=== PATIENT | female | born 1950 | race Caucasian/White ===

== ENCOUNTER 2021-09-04 12:41 | Outpatient (REF) | payer MEDICARE, SELFPAY ==
--- NOTE | ~2021-09-04 | XR_ITS ---
EXAMINATION: XR FOOT, LEFT XR ANKLE, LEFT CLINICAL INFORMATION: Left foot and ankle swelling and pain. COMPARISON: None TECHNIQUE: 3 views left foot and 2 views left ankle. FINDINGS: Three views of the left foot do not demonstrate any evidence of acute fracture or dislocation. There is soft tissue swelling seen about the dorsal medial and lateral aspects of the tarsal bones. The joint spaces appear maintained. No erosive change is evident. There is mild soft tissue prominence with small calcification present about the medial aspect of the first metatarsal head. There are small calcaneal spurs at sites of insertion of Achilles and plantar tendons. No gas within the soft tissues is identified. No radiopaque foreign body. Views of the left ankle demonstrate some smooth periosteal reaction about the distal lateral fibula which may be related to a healed or healing nondisplaced fracture. Clinical correlation is suggested. No significant soft tissue swelling is seen overlying the region of the lateral malleolus. Ankle mortise appears intact. No destructive bony lesion appreciated. XR/XR foot LT min 3V IMPRESSION: Soft tissue swelling about the left foot and ankle as described. No definite acute fracture or dislocation is evident. There does appear to be some smooth periosteal reaction about the distal lateral fibula which may be related to an old fracture or healing nondisplaced fracture. No definite fracture line is appreciated.
--- NOTE | ~2021-09-04 | XR_ITS ---
EXAMINATION: XR FOOT, LEFT XR ANKLE, LEFT CLINICAL INFORMATION: Left foot and ankle swelling and pain. COMPARISON: None TECHNIQUE: 3 views left foot and 2 views left ankle. FINDINGS: Three views of the left foot do not demonstrate any evidence of acute fracture or dislocation. There is soft tissue swelling seen about the dorsal medial and lateral aspects of the tarsal bones. The joint spaces appear maintained. No erosive change is evident. There is mild soft tissue prominence with small calcification present about the medial aspect of the first metatarsal head. There are small calcaneal spurs at sites of insertion of Achilles and plantar tendons. No gas within the soft tissues is identified. No radiopaque foreign body. Views of the left ankle demonstrate some smooth periosteal reaction about the distal lateral fibula which may be related to a healed or healing nondisplaced fracture. Clinical correlation is suggested. No significant soft tissue swelling is seen overlying the region of the lateral malleolus. Ankle mortise appears intact. No destructive bony lesion appreciated. XR/XR ankle LT 2V IMPRESSION: Soft tissue swelling about the left foot and ankle as described. No definite acute fracture or dislocation is evident. There does appear to be some smooth periosteal reaction about the distal lateral fibula which may be related to an old fracture or healing nondisplaced fracture. No definite fracture line is appreciated.
== END 2021-09-04 12:42 | disposition home or self-care (01) ==
LOC: HO.XRAY 12:41
PROVIDERS: PCP Internal Medicine; Visit Provider Internal Medicine
DX: M25.572 Pain in left ankle and joints of left foot (principal); R60.0 Localized edema
CPT/HCPCS: 73600; 73630

== ENCOUNTER 2023-12-21 11:49 | Outpatient (REF) | payer MEDICARE, SELFPAY ==
[2023-12-21 14:19] LABS: Alanine Aminotransferase 17 U/L (0-31); Albumin Level 4.3 g/dL (3.5-5.0); Alkaline Phosphatase 46 U/L (39-117); Anion Gap 13 (12-20); Aspartate Amino Transferase 18 U/L (5-31); Bilirubin Total 1.1 mg/dL (0.0-1.0); Blood Urea Nitrogen 13 mg/dL (9-16); Calcium 9.7 mg/dL (8.4-10.2); Carbon Dioxide 30 mmol/L (22-29); Chloride 104 mmol/L (96-108); Estimated Glomerular Filt Rate > 60; Glucose Random 103 mg/dL (60-115); Potassium 4.8 mmol/L (3.3-5.1); Sodium 142 mmol/L (135-145)
[2023-12-21 14:38] LABS: Thyroid Stimulating Hormone 2.63 uIU/mL (0.32-4.0)
== END 2023-12-21 11:50 | disposition home or self-care (01) ==
LOC: HO.LAB 11:49
PROVIDERS: PCP Internal Medicine; Visit Provider Internal Medicine
DX: Z00.00 Encounter for general adult medical examination without abnormal findings (principal); E03.8 Other specified hypothyroidism; E78.00 Pure hypercholesterolemia, unspecified; F32.5 Major depressive disorder, single episode, in full remission; I10 Essential (primary) hypertension
CPT/HCPCS: 36415; 80053; 84443

== ENCOUNTER 2024-01-05 11:09 | Outpatient (AMB) | payer MEDICARE, SELFPAY ==
--- NOTE | 2024-01-05 11:14 | MHC.OFFVIS ---
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 She does not have any known cardiac issues. No known coronary artery disease, myocardial infarction, cardiomyopathy or in fact any cardiac issues. She also denies any major comorbidities like diabetes or hypertension. She is on medications for cholesterol. She states that about 2 months ago, she had approximately a 6 week period when she felt palpitations. She believes this was essentially present throughout the day and night for those weeks. The same time, whenever she was exerting herself like going up stairs and carrying some weight, she was feeling short of breath. After that, it seems all the symptoms resolved completely and she is back to her normal self. She no longer has any cardiac symptoms. Never had any exertional angina. Currently, feels back to normal self. Otherwise, remote history of smoking about 20 years ago. She drinks about 3 glasses of wine a day. [facility] Surgical History (Updated 01/05/24 @ 11:20 by Poly Barraza CMA) H/O: hysterectomy Family History (Updated 01/05/24 @ 11:22 by Poly Barraza CMA) Father Heart attack Pacemaker Social History (Updated 01/05/24 @ 11:22 by Poly Barraza CMA) Alcohol intake: current Comment: 3 glasses of wine daily Patient Tobacco Use Status: Former Tobacco user Review of Systems Const Denies chills, Denies daytime sleepiness, Denies fatigue, Denies fever(s), Denies poor appetite, Denies snoring, Denies stops breathing during sleep, Denies weakness, Denies weight gain and Denies weight loss Eyes Denies loss of vision ENT Denies dizziness and Denies hearing loss Card Denies chest pain, Denies irregular heart rhythm, Denies claudication, Denies leg edema, Denies lightheadedness, Denies palpitations, Denies dyspnea on exertion and Denies orthopnea Resp Denies cough, Denies excessive phlegm production, Denies dyspnea on exertion, Denies snoring and Denies wheezing GI Denies abdominal pain, Denies hematochezia, Denies change in bowel habits, Denies nausea and Denies vomiting Denies urinary frequency and Denies dysuria Musc Denies arthralgias, Denies muscle weakness, Denies numbness and Denies other Skin/Breast Denies nail changes and Denies rash Neuro Denies Abnormal speech present, Denies dizziness, Denies loss of vision, Denies memory loss, Denies numbness and Denies weakness Psych Denies depression and Denies memory loss Endo Denies fatigue and Denies palpitations Eddie/Lymph Denies easy bruising Aller/Immun Denies wheezing Physical Exam Vital Signs: Last Vital Signs Pulse 78 01/05/24 11:16 BP 126/68 01/05/24 11:16 BMI result Body Mass Index 28.8 Const General: comfortable and no acute distress Orientation/consciousness: patient oriented x3 HEENT Other: Unremarkable Head: Yes normal to inspection Neck Neck: Yes normal visual inspection Chest Chest palpation & inspection: normal inspection of the chest Resp Auscultation: clear to auscultation bilaterally Cardio Palpation: normal PMI Heart sounds: S1 normal heart sound present, S2 normal heart sound present, no gallops, no murmurs and no rubs GI Palpation (GI): Soft to palpation Back/Spine/Pelvis Other: unremarkable Skin General skin exam: no rashes or lesions noted Neuro General: patient oriented x3 Speech: No Abnormal speech present Extrem General: Yes normal to inspection Psych Mental Status: mental status grossly normal Office Procedures EKG Details: EKG with underlying sinus rhythm at 78/Min; leftward axis; cannot exclude left anterior fascicular block; [place] [address]-[id number], Complete Assessment & Plan Assessment & Plan (1) Palpitations: Code(s): R00.2 - Palpitations Category: Medical (2) Short of breath on exertion: Code(s): R06.02 - Shortness of breath Category: Medical Plan Unclear if she had a period of atrial fibrillation or other supraventricular arrhythmias which has since resolved. Possible relationship to alcohol intake. Baseline EKG unrevealing. We will do an echocardiogram and 14 day Holter for further evaluation. Based on the findings, further care. Orders: Orders CA echo transthoracic complete Today R06.02 - Shortness of breath ECG 14 day holter monitor Today R00.2 - Palpitations Coding Level of Care Code New Pt Level 4 (95240) Diagnoses Palpitations R00.2 Short of breath on exertion R06.02 CPT Codes EKG - CPT: 70533-[id number], Complete ([id number])
[2024-01-05 11:16] VITALS: BP 126/68; PULSE 78; BMI 28.8
== END 2024-01-05 11:45 | disposition home or self-care (01) ==
PROVIDERS: PCP Internal Medicine; Visit Provider Internal Medicine
DX: R00.2 Palpitations (principal); R06.02 Shortness of breath
CPT/HCPCS: 93010; 99204

== ENCOUNTER → 2024-01-05 11:09 | Outpatient (BNVA) | payer MEDICARE, SELFPAY | PROVIDERS: PCP Internal Medicine; Visit Provider Internal Medicine | DX: R00.2 Palpitations (principal); R94.31 Abnormal electrocardiogram [ECG] [EKG]; I44.7 Left bundle-branch block, unspecified; R06.02 Shortness of breath | CPT/HCPCS: 93005; 99202 ==

== ENCOUNTER → 2024-01-13 10:58 | Outpatient (REF) | payer MEDICARE, SELFPAY ==
--- NOTE | 2024-01-13 11:03 | HM_ITS ---
* Total monitoring time 7 days. * Underlying rhythm is sinus. Average ventricular rate 82/Min. * Evidence of atrial fibrillation with rapid ventricular response noted. Longest episode about 17 hours. Overall burden 22%. * Rare supraventricular and ventricular ectopy. * No significant pauses or AV blocks. * Patient markers used in association with sinus rhythm, supraventricular and ventricular ectopy, atrial fibrillation. * Flutter in patient diary correlates with sinus rhythm, supraventricular ectopy, atrial fibrillation MTDD
== END ==
LOC: HO.CARD 10:58
PROVIDERS: PCP Internal Medicine; Visit Provider Internal Medicine
DX: R00.2 Palpitations (principal)
CPT/HCPCS: 93246

== ENCOUNTER → 2024-01-13 11:03 | Outpatient (BNV) | payer MEDICARE, SELFPAY | PROVIDERS: PCP Internal Medicine; Visit Provider Internal Medicine | DX: I48.91 Unspecified atrial fibrillation (principal) | CPT/HCPCS: 93248 ==

== ENCOUNTER 2024-01-27 12:45 | Outpatient (REF) | payer MEDICARE, SELFPAY ==
[2024-01-27 13:19] LABS: Hematocrit 42.7 % (37.0-47.0); Hemoglobin 14.1 g/dl (12.0-16.0); Mean Corpuscular Hemoglobin 30.9 pg (27.0-33.0); Mean Corpuscular Volume 93.6 fL (80.0-98.0); Mean Platelet Volume 8.3 fL (9.4-12.3); Platelet Count 156 X10*3/uL (160-400); Prothrombin Time 11.7 SEC (11.1-13.3); Red Blood Count 4.56 X10*6/uL (4.20-5.50); Red Cell Distribution Width 12.5 % (11.0-16.0); White Blood Count 4.7 X10*3/uL (4.8-10.8)
== END 2024-01-27 12:46 | disposition home or self-care (01) ==
LOC: HO.LAB 12:45
PROVIDERS: PCP Internal Medicine; Visit Provider Internal Medicine
DX: I48.91 Unspecified atrial fibrillation (principal)
CPT/HCPCS: 36415; 85027; 85610

== ENCOUNTER → 2024-02-03 12:58 | Outpatient (REF) | payer MEDICARE, SELFPAY ==
--- NOTE | 2024-02-03 13:01 | CA_ITS ---
Transthoracic Echocardiogram Patient (Last, First, Middle): Yoanna Olson, Gender: Female Date of : 1950 Age: 74 Procedure Date: 02/03/2024 Procedure Type: Transthoracic Echocardiogram Location: OP Height: 167.64 cm Weight: 78.02 kg BSA: 1.88 m2 Heart Rate: bpm BP: 122 / 70 mmHg Clinical Operations Leader: TO Referring MD: Felix Villasenor MD Symptoms: R06.02 - Shortness of breath Study Quality: Fair ECG Rhythm: Atrial Fibrillation Conclusions: - The left ventricular systolic function is mildly decreased. The calculated ejection fraction is 47% by biplane method. - No obvious valvular pathology seen on this study. - There is mild dilatation of the ascending aorta measuring 4.00 cm. Findings Left Ventricle Normal left ventricular cavity size. The left ventricular systolic function is mildly decreased. The calculated ejection fraction is 47% by biplane method. There is mild global hypokinesis. Diastolic function is indeterminate on the basis of available data. There is mild septal asymmetric hypertrophy. Right Ventricle Normal right ventricular cavity size. There is mildly decreased right ventricular systolic function. Atria Both atria are normal in size. Aortic Valve There is a normal trileaflet aortic valve. There is no aortic valve stenosis. There is no aortic valve regurgitation. Mitral Valve The mitral valve appears normal. There is no mitral valve regurgitation. There is no mitral valve stenosis. Pulmonic Valve The pulmonic valve is likely normal. Tricuspid Valve There is trace tricuspid valve regurgitation. There is no evidence of pulmonary hypertension. Great Vessels There is mild dilatation of the ascending aorta measuring 4.00 cm. Venous The inferior vena cava is normal in size and collapses greater than 50% with inspiration. Pericardium/Pleural There is no evidence of pericardial effusion. Prior Study Comparison No prior study available for comparison. Recommendations, Care & Conclusions No obvious valvular pathology seen on this study. Measurements 2D Linear Measurements IVSd: 1.09 0.6-0.9/0.6-1.0 cm LVIDd: 3.98 3.9-5.3/4.2-5.9 cm LVIDd Index: 2.12 2.4-3.2/2.2-3.1 cm/m2 LVIDs: 3.05 2.0-3.6 cm LVPWd: 1.01 0.7-1.1 cm LA Diam: 2.80 2.7-3.8/3.0-4.0 cm LAIDs Index: 1.49 1.5-2.3 cm/m2 LV Mass: 168.18 67-162/88-224 g LV Mass Index: 89.46 43-95/49-115 g/m2 LVOT Diam: 2.30 3.0+(-)1.3 cm 2D Systolic Function EF 4C: 49.00 >55% EF 2C: 45.90 >55% EF BiP: 47.10 >55% Mitral Valve MV Pk E: 0.77 MV Decel Time: 202.00 E'Lateral: 11.70 E'Medial: 6.52 E/E' Med: 11.80 E/E' Lat: 6.60 PHT: 59.00 MVA PHT: 3.73 Decel [place]: 3.80 Aortic Valve AoV Pk [place]: 0.87 AoV Pk Grad: 3.00 LVOT LVOT Pk [place]: 0.69 LVOT Mn [place]: 0.43 LVOT VTI: 0.12 LVOT Pk Grad: 2.00 LVOT Mn Grad: 1.00 LVOT Diam: 2.30 LVOT Area: 4.15 Diastolic Function MV Pk E: 0.77 E'Medial: 6.52 E/E' Med: 11.80 E' Laterial: 11.70 E/E' Lat: 6.60 Right Ventricle TAPSE (mm): 13.40 TVS' [place]: 10.70 Tricuspid Valve RA Press: 3.00 Great Vessels Aorta Sinus of Valsalva: 3.62 2.0-3.[address] [place]: 2.90 1.7-3.4 cm Ao Asc: 4.00 2.1-3.4 cm Updated in Other Vendor System with Status of Final Felix Villasenor MD electronically signed on 02/04/2024 2:58:53 PM with status of Final
== END ==
LOC: HO.CARD 12:58
PROVIDERS: PCP Internal Medicine; Visit Provider Internal Medicine
DX: R06.02 Shortness of breath (principal); R00.2 Palpitations
CPT/HCPCS: 93306

== ENCOUNTER → 2024-02-03 13:01 | Outpatient (BNV) | payer MEDICARE, SELFPAY | PROVIDERS: PCP Internal Medicine; Visit Provider Internal Medicine | DX: I42.2 Other hypertrophic cardiomyopathy (principal) | CPT/HCPCS: 93306 ==

== ENCOUNTER 2024-02-17 09:38 | Outpatient (AMB) | payer MEDICARE, SELFPAY ==
[2024-02-17 10:01] VITALS: BP 136/78; PULSE 80; BMI 28.6
--- NOTE | 2024-02-17 10:01 | A.OFFVIS_ITS ---
Vital Signs 02/17/24 10:01 Height 5 ft 5 in Weight 171 lb 15.369 oz BMI 28.6 BP 136/78 Blood Pressure Location Lt brachial Position Sitting Pulse 80 Pulse Source Pulse Oximeter Intake Visit Reasons: follow up/echocardio/holter Allergies No Known Allergies Allergy (Verified 01/05/24 11:17) Medication List - Last Reconciled 02/17/24 by Clementine Schmitz, IT SYSTEMS ADMINISTRATOR-C apixaban (Eliquis) 5 mg PO BID fluoxetine 10 mg PO DAILY levothyroxine 88 mcg PO DAILY metoprolol succinate ER 50 mg PO DAILY simvastatin 20 mg PO DAILY HPI HPI follow up/echocardio/holter: Details: Jennifer is a 74-year-old female with past medical history of hyperlipidemia, heart palpitations with recent finding of paroxysmal atrial fibrillation and mild cardiomyopathy. She was started on appropriate med management and now presents for follow-up. Today she reports that she is still having episodes of heart palpitations however less than previously reported. She is not bothered as much by the palpitations at night like she used to. She is not having any shortness of breath, PND, orthopnea or edema. No chest discomfort at rest or with activity. No lightheadedness, presyncope, syncope, falls. She admits to being mostly sedentary. No bleeding issues reported. Taking meds as directed. [facility] Surgical History H/O: hysterectomy Family History Father Heart attack Pacemaker Social History Alcohol intake: current Comment: 3 glasses of wine daily Patient Tobacco Use Status: Former Tobacco user Review of Systems Const All systems reviewed & are unremarkable except as noted in HPI and below Denies weakness ENT Denies dizziness Card Details: palpitations Denies chest pain, Denies chest pain with activity, Denies syncope, Denies rapid heart rate, Denies pedal edema, Denies edema, Denies leg edema, Denies lightheadedness, Denies palpitations, Denies dyspnea, Denies dyspnea on exertion and Denies orthopnea Resp Denies cough, Denies dyspnea and Denies dyspnea on exertion GI Denies hematochezia and Denies change in stool character Musc Denies abnormal gait, Denies muscle cramps, Denies muscle weakness, Denies numbness, Denies radiating pain into limb and Denies tingling Neuro Denies abnormal gait, Denies dizziness, Denies syncope, Denies numbness, Denies tingling and Denies weakness Endo Denies palpitations Physical Exam Vital Signs: Last Vital Signs Pulse 80 02/17/24 10:01 BP 136/78 02/17/24 10:01 BMI result Body Mass Index 28.6 Const General: cooperative, healthy appearing, comfortable and no acute distress Orientation/consciousness: patient oriented x3 Neck Neck: Yes normal visual inspection and Yes no JVD Resp Effort & Inspection: normal respiratory effort Auscultation: clear to auscultation bilaterally, no crackles, no rales, no rhonchi and no wheezes Cardio Jugular venous distension: no JVD Rate: regular rate Rhythm: regular rhythm Heart sounds: S1 normal heart sound present, S2 normal heart sound present, no murmurs and no rubs Neuro General: patient oriented x3 Extrem General: Yes normal to inspection, No no pedal edema and No calf tenderness Psych Appearance: grossly normal Mental Status: mental status grossly normal Speech and movement: Normal speech and movement present Assessment & Plan Assessment & Plan (1) Paroxysmal A-fib: Code(s): I48.0 - Paroxysmal atrial fibrillation Category: Medical Plan: Patient reports history of heart palpitations. She were Holter monitor on 01/13/2024 for 7 days showing sinus rhythm with average heart rate 80 2%, evidence of atrial fibrillation with RVR, longest episode 17 hours, overall burden 22%. She was started on metoprolol XL 25 mg daily for heart rate control. Labs done 01/27/2024 showed hematocrit 42.7, creatinine 0.84. She was put on Eliquis for anticoagulation. No bleeding issues reported. Today she reports some improvement in her heart palpitations however she still is noticing them. Will increase metoprolol XL up to 50 mg daily. Echo was done on 02/03/2024 showing EF 47%, no valve abnormalities. Her reduced EF is likely related to AFib RVR however ischemia needs to be ruled out. Will check an exercise nuclear stress test to evaluate for any ischemia. Plan to call her with test results. Cardiology follow-up in 3 to 4 months, sooner if needed. (2) Palpitations: Code(s): R00.2 - Palpitations Category: Medical Plan: As above (3) Cardiomyopathy: Code(s): I42.9 - Cardiomyopathy, unspecified Category: Medical Plan: Mild cardiomyopathy, EF 47%, could be tachycardia mediated. Nuclear stress test as above. Plan Time spent on chart review, documentation, interview and assessment Orders: Orders CA stress test Today I42.9 - Cardiomyopathy, unspecified, I48.0 - Paroxysmal atrial fibrillation, R00.2 - Palpitations NM cardiolite stress test Today I42.9 - Cardiomyopathy, unspecified, I48.0 - Paroxysmal atrial fibrillation Medications: New metoprolol succinate ER dose increase 50 mg PO DAILY 30 tabs 5RF Discontinued metoprolol succinate ER (Toprol XL) Discontinued Reason: Doctor's Order 25 mg PO DAILY 30 tabs 3RF Coding Level of Care Code Est Pt Level 4 (46368) Diagnoses Paroxysmal A-fib I48.0 Palpitations R00.2 Cardiomyopathy I42.9 Time Spent (min) 30
== END 2024-02-17 10:31 | disposition home or self-care (01) ==
PROVIDERS: PCP Internal Medicine; Visit Provider Nurse Practitioner Family
DX: I48.0 Paroxysmal atrial fibrillation (principal); R00.2 Palpitations; I42.9 Cardiomyopathy, unspecified
CPT/HCPCS: 99214

== ENCOUNTER → 2024-02-17 09:38 | Outpatient (BNVA) | payer MEDICARE, SELFPAY | PROVIDERS: PCP Internal Medicine; Visit Provider Nurse Practitioner Family | DX: I48.0 Paroxysmal atrial fibrillation (principal); I42.9 Cardiomyopathy, unspecified; R00.2 Palpitations | CPT/HCPCS: 99212 ==

== ENCOUNTER → 2024-04-23 08:42 | Outpatient (REF) | payer MEDICARE, SELFPAY ==
--- NOTE | ~2024-04-23 | NM_ITS ---
EXERCISE MYOCARDIAL PERFUSION STUDY INDICATION: Cardiomyopathy to evaluate for myocardial ischemia TECHNIQUE: The patient was brought in for an exercise perfusion study on 04/23/2024. Patient performed exercise as per Tim protocol and was injected 25 mCi of sestamibi once target heart rate was achieved. Images were obtained using the SPECT gamma camera interlaced with the gating device. Images were obtained in supine position. Resting perfusion study was performed on 04/24/2004. Patient was administered 25 mCi of sestamibi intravenously at rest. Images were then obtained in supine position. Images obtained without without CT attenuation. Total DLP 82 mGy-cm. Images were processed with the software and compared side to side in short axis, horizontal long axis and vertical long axis views. FINDINGS: Raw images were reviewed The stress perfusion study showed nonattenuated images show mildly reduced uptake in the basal inferior wall as well as the apex of the LV myocardium. Attenuated corrected images show mildly reduced uptake in the apex of the LV myocardium. Remainder of LV myocardium is normally perfused. The gated study shows normal LV systolic function with calculated LVEF of 66%. LV cavity is mildly dilated in size. The gated study shows normal wall thickening and contraction of all segments. Resting study shows no change in perfusion pattern compared to stress perfusion study. Gating at rest reveals normal systolic wall motion with ejection fraction at 66%. The findings are consistent with no reversible defect suggestive of ischemia. Fixed apical defect with normal thickening is suggestion of attenuation artifact.. NM/NM cardiolite stress test IMPRESSION: 1. Myocardial perfusion imaging study shows likely normal myocardial perfusion. 2. Gated LVEF is 66%. 3. Transient ischemic dilatation not present. EKG revealed negative for ischemia. Electronically signed by: Owen Cardoza MD 04/24/2024 03:48 PM [facility] [place]
--- NOTE | 2024-04-23 08:45 | CA_ITS ---
Acquisition Time: 2024-04-23 09:11:18 Total Exercise Time: 00:04:17 Test Indications: AFIB Medications: SEE H Protocol: LACEY Max HR: 130 BPM 89% of Pred: 146 BPM Max BP: 170/100 mmHG Max Work Load: 5.6 METS Exercise Stress test with exercise 4 mins 17 secs of Lacey Protocol, slowed speed to 2.2 mph at 3 minute due to moderate SOB, achieving 89% MPHR, with no chest discomfort, with isolated PACs and PVCs, 2 PVC couplets, with normotensive response to exercise. With J point depression ST upsloping, and in late recovery, nonspecific ST changes noted with unclear significance. Nuclear images pending. Breathing back to baseline. Test reviewed with Dr. Villasenor. Referred By: Clementine Schmitz Overread By: CLEMENTINE SCHMITZ
== END ==
LOC: HO.CARD 08:42
PROVIDERS: PCP Internal Medicine; Visit Provider Nurse Practitioner Family
DX: I42.9 Cardiomyopathy, unspecified (principal); I48.0 Paroxysmal atrial fibrillation; R00.2 Palpitations
CPT/HCPCS: 78452; 93017; A9500

== ENCOUNTER → 2024-04-23 08:45 | Outpatient (BNV) | payer MEDICARE, SELFPAY | PROVIDERS: PCP Internal Medicine; Visit Provider Nurse Practitioner Family | DX: I49.1 Atrial premature depolarization (principal); I49.3 Ventricular premature depolarization | CPT/HCPCS: 78452; 93016; 93018 ==

== ENCOUNTER 2024-06-06 13:29 | Outpatient (AMB) | payer MEDICARE, SELFPAY ==
[2024-06-06 13:31] VITALS: BP 132/72; PULSE 78; BMI 27.9
--- NOTE | 2024-06-06 13:31 | A.OFFVIS_ITS ---
Vital Signs 06/06/24 13:31 Height 5 ft 5 in Weight 167 lb 8.821 oz BMI 27.9 BP 132/72 Blood Pressure Location Lt brachial Position Sitting Pulse 78 Pulse Source Pulse Oximeter Intake Visit Reasons: 4 m follow up/stress test Allergies No Known Allergies Allergy (Verified 01/05/24 11:17) Medication List - Last Reconciled 06/06/24 by Felix Villasenor MD apixaban (Eliquis) 5 mg PO BID fluoxetine 10 mg PO DAILY levothyroxine 88 mcg PO DAILY metoprolol succinate ER 50 mg PO DAILY simvastatin 20 mg PO DAILY HPI Comments Details: Yoanna returns for follow-up. In the past, she was seen regarding shortness of breath and palpitations. No known coronary disease myocardial infarction or cardiomyopathy. She underwent further workup that showed paroxysmal atrial fibrillation. Then she was put on beta-blockers as well as Eliquis. For the last few months, she states she is actually doing good. No new complaints. No further palpitations. Otherwise, she drinks about 3 glasses of wine a day. [facility] Surgical History H/O: hysterectomy Family History Father Heart attack Pacemaker Social History Alcohol intake: current Comment: 3 glasses of wine daily Patient Tobacco Use Status: Former Tobacco user Review of Systems Const Denies weakness ENT Denies dizziness Card Denies chest pain, Denies chest pain with activity, Denies syncope, Denies rapid heart rate, Denies pedal edema, Denies edema, Denies leg edema, Denies lightheadedness, Denies palpitations, Denies dyspnea, Denies dyspnea on exertion and Denies orthopnea Resp Denies cough, Denies dyspnea and Denies dyspnea on exertion GI Denies hematochezia and Denies change in stool character Musc Denies abnormal gait, Denies muscle cramps, Denies muscle weakness, Denies numbness, Denies radiating pain into limb and Denies tingling Neuro Denies abnormal gait, Denies dizziness, Denies syncope, Denies numbness, Denies tingling and Denies weakness Endo Denies palpitations Physical Exam Vital Signs: Last Vital Signs Pulse 78 06/06/24 13:31 BP 132/72 06/06/24 13:31 BMI result Body Mass Index 27.9 Const General: comfortable and no acute distress Orientation/consciousness: patient oriented x3 HEENT Other: Unremarkable Head: Yes normal to inspection Neck Neck: Yes normal visual inspection Chest Chest palpation & inspection: normal inspection of the chest Resp Auscultation: clear to auscultation bilaterally Cardio Palpation: normal PMI Heart sounds: S1 normal heart sound present, S2 normal heart sound present, no gallops, no murmurs and no rubs GI Palpation (GI): Soft to palpation Back/Spine/Pelvis Other: unremarkable Skin General skin exam: no rashes or lesions noted Neuro General: patient oriented x3 Extrem General: Yes normal to inspection Psych Mental Status: mental status grossly normal Assessment & Plan Assessment & Plan (1) Paroxysmal A-fib: Code(s): I48.0 - Paroxysmal atrial fibrillation Category: Medical Plan: Continue beta-blockers and anticoagulation. (2) Cardiomyopathy: Code(s): I42.9 - Cardiomyopathy, unspecified Category: Medical Plan: In the echocardiogram, LVEF is 47%. Myocardial perfusion imaging study is unremarkable. Etiology could be either atrial fibrillation or alcohol or both. We can repeat echocardiogram in 6 months. (3) Ascending aorta dilatation: Code(s): I77.810 - Thoracic aortic ectasia Category: Medical Plan: Ascending aortic size 4 cm. Can be followed periodically. (4) Excessive drinking alcohol: Code(s): F10.10 - Alcohol abuse, uncomplicated Category: Social Hx Plan: Advised cutting back. Orders: Orders ECG 3 day holter monitor 6 Months I48.0 - Paroxysmal atrial fibrillation CA echo transthoracic complete 6 Months I42.9 - Cardiomyopathy, unspecified Coding Level of Care Code Est Pt Level 4 (31399) Diagnoses Paroxysmal A-fib I48.0 Cardiomyopathy I42.9 Ascending aorta dilatation I77.810 Excessive drinking alcohol F10.10
== END 2024-06-06 13:47 | disposition home or self-care (01) ==
PROVIDERS: PCP Internal Medicine; Visit Provider Internal Medicine
DX: I48.0 Paroxysmal atrial fibrillation (principal); I42.9 Cardiomyopathy, unspecified; I77.810 Thoracic aortic ectasia; F10.10 Alcohol abuse, uncomplicated
CPT/HCPCS: 99214

== ENCOUNTER → 2024-06-06 13:29 | Outpatient (BNVA) | payer MEDICARE, SELFPAY | PROVIDERS: PCP Internal Medicine; Visit Provider Internal Medicine | DX: I48.0 Paroxysmal atrial fibrillation (principal); I42.9 Cardiomyopathy, unspecified; I77.810 Thoracic aortic ectasia; F10.10 Alcohol abuse, uncomplicated | CPT/HCPCS: 99212 ==

== ENCOUNTER 2024-06-20 12:14 | Outpatient (REF) | payer MEDICARE, SELFPAY ==
[2024-06-20 12:27] LABS: MANUAL DIFF FLAG NO
[2024-06-20 13:16] LABS: Basophils Absolute Auto 0.1 X10*3/uL (0.0-0.2); Basophils Percent Auto 1.3 % (0-2); Eosinophils Absolute Auto 0.3 X10*3/uL (0.0-0.4); Eosinophils Percent Auto 5.6 % (0-4); Hematocrit 43.8 % (37.0-47.0); Hemoglobin 14.2 g/dl (12.0-16.0); Imm Gran Abs Auto 0.02 X10*3/uL (0.00-0.03); Imm Gran Pct Auto 0.4 % (0.0-0.4); Lymphocytes Absolute Auto 1.6 X10*3/uL (1.2-4.9); Mean Corpuscular HGB Conc 32.4 g/dl (31.0-35.0); Mean Corpuscular Hemoglobin 30.6 pg (27.0-33.0); Mean Corpuscular Volume 94.4 fL (80.0-98.0); Mean Platelet Volume 8.6 fL (9.4-12.3); Monocytes Absolute Auto 0.6 X10*3/uL (0.1-1.2); Monocytes Percent Auto 10.5 % (2-11); Neutrophils Absolute Auto 2.8 x10*3/uL (2.0-8.3); Neutrophils Percent Auto 52.2 % (45-73); Platelet Count 172 X10*3/uL (160-400); Red Blood Count 4.64 X10*6/uL (4.20-5.50); Red Cell Distribution Width 12.8 % (11.0-16.0); White Blood Count 5.3 X10*3/uL (4.8-10.8)
[2024-06-20 13:55] LABS: Alanine Aminotransferase 22 U/L (0-31); Albumin Level 4.3 g/dL (3.5-5.0); Alkaline Phosphatase 49 U/L (39-117); Anion Gap 10 (12-20); Aspartate Amino Transferase 23 U/L (5-31); Bilirubin Total 1.1 mg/dL (0.0-1.0); Blood Urea Nitrogen 11 mg/dL (9-16); Calcium 9.8 mg/dL (8.4-10.2); Carbon Dioxide 33 mmol/L (22-29); Chloride 102 mmol/L (96-108); Cholesterol 198 mg/dL (<200); Estimated Glomerular Filt Rate > 60; Glucose Random 93 mg/dL (60-115); HDL Cholesterol 73 mg/dL (>40); LDL Cholesterol Calculated 105 mg/dL (<100); Potassium 4.6 mmol/L (3.3-5.1); Sodium 140 mmol/L (135-145); Total Protein 7.3 g/dL (6.5-8.0); Triglycerides 100 mg/dL (<150)
== END 2024-06-20 12:15 | disposition home or self-care (01) ==
LOC: HO.LAB 12:14
PROVIDERS: PCP Internal Medicine; Visit Provider Internal Medicine
DX: E03.8 Other specified hypothyroidism (principal); E78.00 Pure hypercholesterolemia, unspecified; F32.5 Major depressive disorder, single episode, in full remission; R00.2 Palpitations; R06.02 Shortness of breath
CPT/HCPCS: 36415; 80053; 80061; 84443; 85025

== ENCOUNTER → 2024-11-22 08:10 | Outpatient (REF) | payer MEDICARE, SELFPAY ==
--- NOTE | 2024-11-22 08:13 | HM_ITS ---
Conclusion: 1. Patient was monitored for total period of 2 days and 23 hours 2. Baseline was normal sinus rhythm with average heart of 60 beats per minute 3. Frequent sinus bradycardia noted with 55% of time heart rate below 60 beats per minute without significant pauses 4. Rare PACs and PVCs noted 5. No patient reported events MTDD
--- NOTE | 2024-11-22 08:13 | CA_ITS ---
Transthoracic Echocardiogram Patient (Last, First, Middle): Yoanna Olson, Gender: Female Date of : 1950 Age: 74 Procedure Date: 11/22/2024 Procedure Type: Transthoracic Echocardiogram Location: OP Height: 165.1 cm Weight: 75.75 kg BSA: 1.83 m2 Heart Rate: bpm BP: 132 / 72 mmHg Mobile Marketing Specialist: MT Referring MD: Felix Villasenor MD Symptoms: I42.9 - Cardiomyopathy, unspecified Study Quality: Adequate ECG Rhythm: Atrial Fibrillation Conclusions: - The left ventricular systolic function is low normal. The visually estimated ejection fraction is between 50-55%. - No obvious valvular pathology seen on this study. Findings Left Ventricle Normal left ventricular cavity size. The left ventricular systolic function is low normal. The visually estimated ejection fraction is between 50-55%. There is no evidence of regional wall motion abnormalities. Diastolic function is indeterminate on the basis of available data. There is mild septal asymmetric hypertrophy. Right Ventricle Normal right ventricular cavity size and systolic function. Atria The left atrium is normal in size. The right atrium is mildly dilated. Aortic Valve There is a normal trileaflet aortic valve. There is no aortic valve stenosis. There is no aortic valve regurgitation. Mitral Valve The mitral valve appears normal. There is trace mitral valve regurgitation. There is no mitral valve stenosis. Pulmonic Valve The pulmonic valve is likely normal. Tricuspid Valve There is trace tricuspid valve regurgitation. There is no evidence of pulmonary hypertension. Great Vessels The asc aorta is normal in size. Venous The inferior vena cava is normal in size and collapses greater than 50% with inspiration. Pericardium/Pleural There is no evidence of pericardial effusion. Prior Study Comparison No significant change compared to prior study dated: 02/03/2024. Recommendations, Care & Conclusions No obvious valvular pathology seen on this study. Measurements 2D Linear Measurements IVSd: 1.07 0.6-0.9/0.6-1.0 cm LVIDd: 4.53 3.9-5.3/4.2-5.9 cm LVIDd Index: 2.48 2.4-3.2/2.2-3.1 cm/m2 LVIDs: 3.14 2.0-3.6 cm LVPWd: 0.98 0.7-1.1 cm LA Diam: 3.50 2.7-3.8/3.0-4.0 cm LAIDs Index: 1.91 1.5-2.3 cm/m2 LV Mass: 199.88 67-162/88-224 g LV Mass Index: 109.22 43-95/49-115 g/m2 LVOT Diam: 2.20 3.0+(-)1.3 cm 2D Systolic Function EF 4C: 59.60 >55% EF 2C: 59.80 >55% EF BiP: 60.50 >55% Mitral Valve MV Pk E: 0.78 MV PK A: 0.68 MV Decel Time: 175.00 E/A: 1.10 E'Lateral: 9.14 E'Medial: 5.33 E/E' Med: 14.60 E/E' Lat: 8.50 PHT: 51.00 MVA PHT: 4.31 Decel Cidra: 4.43 Aortic Valve AoV Pk Candelario: 1.00 AoV Mn Candelario: 0.75 AoV VTI: 0.28 AoV Pk Grad: 4.00 Aov Mn Grad: 2.00 THOMAS Cont.VTI: 2.81 LVOT LVOT Pk Candelario: 0.80 LVOT Mn Candelario: 0.51 LVOT VTI: 0.21 LVOT Pk Grad: 3.00 LVOT Mn Grad: 1.00 LVOT Diam: 2.20 LVOT Area: 3.80 Diastolic Function MV Pk E: 0.78 MV Pk A: 0.68 E/A: 1.10 E'Medial: 5.33 E/E' Med: 14.60 E' Laterial: 9.14 E/E' Lat: 8.50 Right Ventricle TAPSE (mm): 26.90 TVS' Candelario: 10.80 Tricuspid Valve TR Pk Candelario: 1.57 TR Pk Grad: 10.00 RA Press: 3.00 RVSP: 13.00 Great Vessels Aorta Sinus of Valsalva: 3.52 2.0-3.5 cm Ao Asc: 3.80 2.1-3.4 cm Updated in Other Vendor System with Status of Final Felix Villasenor MD electronically signed on 11/24/2024 11:57:27 AM with status of Final
--- OUTSIDE RECORDS SUMMARY | 2024-11-22 08:21 | XMS_ITS | Patient Health Record ---
Author Organization [facility] Address [address] [place] [address] Care Team Providers Care Keypunch Operators Supervisor Name Role Phone Caleb Jones Primary Care Provider Wilder Mckeon [phone] Reason For Referral No Information Medications Medication SIG (Take, Route, Frequency, Duration) Notes Start Date End Date Status Levothyroxine Sodium 88 MCG Orally Once a day Active Fluoxetine 10 mg Act reina Simvastatin 20 MG Orally Once a day Active Social History Tobacco Use: Social History Observation Description Date Details (start date - stop date) Former Smoker NA - NA Tobacco Use/Smoking Question Answer Notes Patient is a former smoker How long has it been since you last smoked? > 10 years Alcohol Screen Question Answer Notes Did you have a drink contain ing alcohol in the past year? Yes How often did you have a dri nk containing alcohol in the past year? 4 or more times a week (4 points) How many drinks did you have on a typical day when you were drinking in the past year? 3 or 4 drinks (1 point) How often did you have 6 or more drinks on one occasion in the past year? Never (0 point) Points 5 Interpretation Positive Section Notes: Nonsmoker > 10 yrs ago, 3-4 glasses of wine per day Problems Problem Type SNOMED Code ICD Code Onset Dates Problem Status W/U Status Risk Notes Problem 322331511 Encounter for screening for malignant neoplasm of colon (Z12.11) Active confirmed Problem [id number] Pre-procedural examination (Z01.818) Active confirmed Plan Of Treatment Future Test Test Name Order Date COLONOSCOPY 11/10/2017 Insurance Providers Payer Name Payer Address Payer Phone Subscriber Number Group Number Insured Name Patient Relationship to Insured Coverage Start Date Coverage End Date [employer] [address] [employer] [place] [phone] [id number] FORD JAMISON Self - patient is the insured Medical (General) History Medical History History ICD Code Denies PR,DM,CVA,Lung disease,renal dise ase Neg. screening colonoscopy i n 2006--hyperplastic polyp, diverticulosis, internal hemorrhoids Hyperlipidemia Hypothyroidism Anxiety Surgical History Surgery Date(Month/Year) [facility] 2005 Pins in right pinky finger d ue to broken finger 2016--pins were removed
== END ==
LOC: HO.CARD 08:10
PROVIDERS: PCP Internal Medicine; Visit Provider Internal Medicine
DX: I48.0 Paroxysmal atrial fibrillation (principal); I42.9 Cardiomyopathy, unspecified
CPT/HCPCS: 93242; 93306

== ENCOUNTER → 2024-11-22 08:13 | Outpatient (BNV) | payer MEDICARE, SELFPAY | PROVIDERS: PCP Internal Medicine; Visit Provider Internal Medicine | DX: I42.9 Cardiomyopathy, unspecified (principal) | CPT/HCPCS: 93306 ==

== ENCOUNTER 2024-12-13 13:40 | Outpatient (AMB) | payer MEDICARE, SELFPAY ==
--- NOTE | 2024-12-13 13:52 | A.OFFVIS_ITS ---
Vital Signs 12/13/24 13:53 Height 5 ft 5 in Weight 169 lb 12.095 oz BMI 28.2 BP 130/68 Blood Pressure Location Lt brachial Position Sitting Pulse 68 Pulse Source Monitor Intake Visit Reasons: 6m follow up w holter/echo Allergies No Known Allergies Allergy (Verified 01/05/24 11:17) Medication List - Last Reconciled 12/13/24 by Felix Villasenor MD apixaban (Eliquis) 5 mg PO BID atorvastatin 40 mg PO BEDTIME fluoxetine 10 mg PO DAILY levothyroxine 88 mcg PO DAILY metoprolol succinate ER 50 mg PO DAILY HPI Comments Details: Yoanna returns for follow-up. In the past, she was seen regarding shortness of breath and palpitations. She underwent further workup that showed paroxysmal atrial fibrillation. Then she was put on beta-blockers as well as Eliquis. Overall, she states she feels fine. She does not really feel any palpitations and hence cannot say if she is in atrial fibrillation or not. During the Holter monitor, it seems she was not sinus rhythm but today she is in atrial fibrillation by EKG. She does not feel any difference either way. Otherwise, she drinks about 3 glasses of wine a day. [facility] Surgical History H/O: hysterectomy Family History Father Heart attack Pacemaker Social History Alcohol intake: current Comment: 3 glasses of wine daily Patient Tobacco Use Status: Former Tobacco user Review of Systems Const Denies weakness ENT Denies dizziness Card Denies chest pain, Denies chest pain with activity, Denies syncope, Denies rapid heart rate, Denies pedal edema, Denies edema, Denies leg edema, Denies lightheadedness, Reports palpitations, Reports dyspnea, Reports dyspnea on exertion and Denies orthopnea Resp Denies cough, Reports dyspnea and Reports dyspnea on exertion GI Denies hematochezia and Denies change in stool character Musc Denies abnormal gait, Denies muscle cramps, Denies muscle weakness, Denies numbness, Denies radiating pain into limb and Denies tingling Neuro Denies abnormal gait, Denies dizziness, Denies syncope, Denies numbness, Denies tingling and Denies weakness Endo Reports palpitations Physical Exam Vital Signs: Last Vital Signs Pulse 68 12/13/24 13:53 BP 130/68 12/13/24 13:53 BMI result Body Mass Index 28.2 Const General: comfortable and no acute distress Orientation/consciousness: patient oriented x3 HEENT Other: Unremarkable Head: Yes normal to inspection Neck Neck: Yes normal visual inspection Chest Chest palpation & inspection: normal inspection of the chest Resp Auscultation: clear to auscultation bilaterally Cardio Palpation: normal PMI Heart sounds: S1 normal heart sound present, S2 normal heart sound present, no gallops, no murmurs and no rubs GI Palpation (GI): Soft to palpation Back/Spine/Pelvis Other: unremarkable Skin General skin exam: no rashes or lesions noted Neuro General: patient oriented x3 Extrem General: Yes normal to inspection Psych Mental Status: mental status grossly normal Office Procedures EKG Details: EKG with atrial fibrillation at a rate of 68/Min; leftward axis. [id number], Complete Assessment & Plan Assessment & Plan (1) Paroxysmal A-fib: Code(s): I48.0 - Paroxysmal atrial fibrillation Category: Medical Plan: In the Holter monitor, underlying rhythm is sinus with an average rate of 60/Min. Frequent sinus bradycardia. However, today she is in atrial fibrillation by EKG. Patient has no symptoms either way. Most likely related to alcohol excess. We will need to cut back and we discussed that today. Continue beta-blockers and anticoagulation. (2) Cardiomyopathy: Code(s): I42.9 - Cardiomyopathy, unspecified Category: Medical Plan: In the most recent echocardiogram, low normal LVEF at 50-55%. Previously, 47%. Myocardial perfusion imaging study is unremarkable. Etiology could be either atrial fibrillation or alcohol or both. No symptoms from this. (3) Ascending aorta dilatation: Code(s): I77.810 - Thoracic aortic ectasia Category: Medical Plan: Top normal size about 3.8 cm. No implications at this time. (4) Excessive drinking alcohol: Code(s): F10.10 - Alcohol abuse, uncomplicated Category: Social Hx Plan: Advised cutting back. Plan Discussion Notes During the consultation, I discussed with the patient the importance of continuing her current medications, including Eliquis and Metoprolol, to manage her atrial fibrillation and prevent complications such as stroke. We discussed about reducing alcohol consumption. Patient was informed and verbally consented to the use of an ambient scribe for clinic note documentation during this visit. Patient Instructions: - Continue taking Eliquis and Metoprolol as prescribed. - Report any new symptoms such as increased shortness of breath or chest pain immediately. Coding Level of Care Code Est Pt Level 4 (90686) Complex EM visit Add On G2211 Diagnoses Paroxysmal A-fib I48.0 Cardiomyopathy I42.9 Ascending aorta dilatation I77.810 Excessive drinking alcohol F10.10 CPT Codes EKG - CPT: 38350-[id number], Complete ([id number])
[2024-12-13 13:53] VITALS: BP 130/68; PULSE 68; BMI 28.2
--- OUTSIDE RECORDS SUMMARY | 2024-12-13 14:21 | XMS_ITS | Patient Health Record ---
Author Organization [facility] Address [address] [place] [address] Care Team Providers Care Operating System Programmer Name Role Phone Caleb Jones Primary Care Provider Wilder Mckeon [phone] Reason For Referral No Information Medications Medication [...] Problem Status W/U Status Risk Notes Problem [id number] Encounter for screening for malignant neoplasm of colon (Z12.11) Active confirmed Problem [id number] Pre-procedural examination (Z01.818) Active confirmed Plan Of Treatment Future Test Test Name Order Date COLONOSCOPY 11/10/2017 Insurance Providers Payer Name Payer Address Payer Phone Subscriber Number Group Number Insured Name Patient Relationship to Insured Coverage Start Date Coverage End Date [employer] [address] [place] [phone] [id number] FORD JAMISON Self - patient is the insured Medical (General) History Medical History History ICD Code Denies MD,DM,CVA,Lung disease,renal dise ase Neg. screening colonoscopy i n 2006--hyperplastic polyp, diverticulosis, internal hemorrhoids Hyperlipidemia Hypothyroidism Anxiety Surgical History Surgery Date(Month/Year) [facility] 2005 Pins in right pinky finger d ue to broken finger 2016--pins were removed
== END 2024-12-13 14:26 | disposition home or self-care (01) ==
LOC: HO.HCS 13:41
PROVIDERS: PCP Internal Medicine; Visit Provider Internal Medicine
DX: I48.0 Paroxysmal atrial fibrillation (principal); I42.9 Cardiomyopathy, unspecified; I77.810 Thoracic aortic ectasia; F10.10 Alcohol abuse, uncomplicated
CPT/HCPCS: 93010; 99214; G2211

== ENCOUNTER → 2024-12-13 13:40 | Outpatient (BNVA) | payer MEDICARE, SELFPAY | PROVIDERS: PCP Internal Medicine; Visit Provider Internal Medicine | DX: I48.0 Paroxysmal atrial fibrillation (principal); I42.9 Cardiomyopathy, unspecified; I77.810 Thoracic aortic ectasia; F10.10 Alcohol abuse, uncomplicated; R94.31 Abnormal electrocardiogram [ECG] [EKG]; I44.4 Left anterior fascicular block | CPT/HCPCS: 93005; 99212 ==

== ENCOUNTER 2024-12-21 10:49 | Outpatient (REF) | payer MEDICARE, SELFPAY ==
[2024-12-21 10:59] LABS: MANUAL DIFF FLAG NO
--- OUTSIDE RECORDS SUMMARY | 2024-12-21 11:00 | XMS_ITS | Patient Health Record ---
Author Organization [facility] Address [address] [place] [address] Care Team Providers Care Agency Appointments Supervisor Name Role Phone Caleb Jones Primary Care Provider iWlder Mckeon [phone] Reason For Referral No Information Medications Medication [...] Problem Status W/U Status Risk Notes Problem [id number] Encounter for screening for malignant neoplasm of colon (Z12.11) Active confirmed Problem [id number] Pre-procedural examination (Z01.818) Active confirmed Plan Of Treatment Future Test Test Name Order Date COLONOSCOPY 11/10/2017 Insurance Providers Payer Name Payer Address Payer Phone Subscriber Number Group Number Insured Name Patient Relationship to Insured Coverage Start Date Coverage End Date [employer] P[employer] [address] [place] [phone] [id number] FORD JAMISON Self - patient is the insured Medical (General) History Medical History History ICD Code Denies AR,DM,CVA,Lung disease,renal dise ase Neg. screening colonoscopy i n 2006--hyperplastic polyp, diverticulosis, internal hemorrhoids Hyperlipidemia Hypothyroidism Anxiety Surgical History Surgery Date(Month/Year) [facility]INT[facility] 2005 Pins in right pinky finger d ue to broken finger 2016--pins were removed
--- OUTSIDE RECORDS SUMMARY | 2024-12-21 11:00 | XMS_ITS | Clinical Summary ---
Author Organization [facility] Address [address] [place] [address] [place] [phone] Phone Care Team Providers Care Mobile Development Manager Name Role Phone Charlotte Celeste MD Primary Care Provider Social History Tobacco Use Types Packs/Day Years Used Date Smoking Tobacco: Never Assessed Education Answer Date Recorded Are you interested in more education? Not on keya e 12/26/2023 Are you concerned about learning? Not on file 12/26/2023 No 12/26/2023 No 12/26/2023 Digital Access Answer Date Recorded No 12/26/2023 No 12/26/2023 Reliable internet access at home? Not on file 12/26/2023 Device with a working camera? Not on file Comments Unknown Sex and Gender Information Value Date Recorded Sex Assigned at Female 12/26/2023 2:04 PM EDT Legal Sex Female 2:02 PM EDT Gender Identity Female 12/26/2023 2:04 PM EDT Sexual Orientation Straight 12/26/2023 2: 04 PM EDT Plan of Treatment Not on file Medical Devices Not on file Insurance [employer] HMO REPLACEMENT MEDICARE PART A [place] [id number] [employer] H[employer] REPLACEMENT MEDICARE PART A & B [employer]MO REPLACEMENT MEDICARE PART A & B [employer]MO [employer]PLACEMENT MEDICARE PART A & B [employer]MO REPLACEMENT MEDICARE PART A & B [employer] REPLACEMENT MEDICARE PART A & B Care Teams Mobile Development Manager Relationship Specialty Start Date End Date Charlotte Celeste MD [address] [place] [address] [place] [address] PCP - General Internal Medicine 12/26/23 Additional Source Comments The information contained in this document represents components of the legal health record. It is not the complete legal health record[facility]
[2024-12-21 11:14] LABS: Hematocrit 43.5 % (37.0-47.0); Hemoglobin 14.1 g/dl (12.0-16.0); Imm Gran Abs Auto 0.03 X10*3/uL (0.00-0.03); Imm Gran Pct Auto 0.6 % (0.0-0.4); Lymphocytes Absolute Auto 1.9 X10*3/uL (1.2-4.9); Mean Corpuscular HGB Conc 32.4 g/dl (31.0-35.0); Mean Corpuscular Hemoglobin 30.2 pg (27.0-33.0); Mean Corpuscular Volume 93.1 fL (80.0-98.0); NRBC Abs Auto 0.000 X10*3/uL (0.0-0.012); NRBC Pct Auto 0.0 /100WBC (0.0-0.2); Platelet Count 179 X10*3/uL (160-400); Red Blood Count 4.67 X10*6/uL (4.20-5.50); White Blood Count 5.2 X10*3/uL (4.8-10.8)
[2024-12-21 11:58] LABS: Alanine Aminotransferase 31 U/L (0-31); Albumin Level 4.3 g/dL (3.5-5.0); Alkaline Phosphatase 68 U/L (39-117); Anion Gap 11 (12-20); Aspartate Amino Transferase 26 U/L (5-31); Blood Urea Nitrogen 12 mg/dL (9-16); Calcium 9.1 mg/dL (8.4-10.2); Carbon Dioxide 31 mmol/L (22-29); Chloride 103 mmol/L (96-108); Cholesterol 165 mg/dL (<200); Estimated Glomerular Filt Rate > 60; HDL Cholesterol 64 mg/dL (>40); Potassium 4.6 mmol/L (3.3-5.1); Sodium 140 mmol/L (135-145); Total Protein 6.7 g/dL (6.5-8.0); Triglycerides 77 mg/dL (<150)
[2024-12-21 12:18] LABS: Thyroid Stimulating Hormone 2.54 uIU/mL (0.32-4.0)
== END 2024-12-21 10:50 | disposition home or self-care (01) ==
LOC: HO.LAB 10:49
PROVIDERS: PCP Internal Medicine; Visit Provider Internal Medicine
DX: E78.00 Pure hypercholesterolemia, unspecified (principal); I43 Cardiomyopathy in diseases classified elsewhere; I48.91 Unspecified atrial fibrillation; F10.20 Alcohol dependence, uncomplicated; Z79.01 Long term (current) use of anticoagulants
CPT/HCPCS: 36415; 80053; 80061; 84443; 85025